=== PATIENT | female | born 1955 ===

== ENCOUNTER → 2019-01-14 | Outpatient (CLI) | payer BC ==
--- NOTE | 2019-01-14 14:56 | CT ---
EXAMINATION TYPE: CT iac wo con DATE OF EXAM: 01/14/2019 COMPARISON: None HISTORY: Per patient right sided ear pain x6 weeks. CT DLP: 142.7mGycm Automated exposure control for dose reduction was used. FINDINGS: The external auditory canals are patent bilaterally. Mastoid air cells show no evidence of abnormal opacification bilaterally. The middle ear ossicles are symmetric and unremarkable. There is no evidence of suspicious surroundi ng soft tissue density to suggest cholesteatoma. The scutum is preserved bilaterally. The cochlea and the semicircular canals are symmetric and unremarkable. Vestibular aqueduct and inte rnal carotid canal appear unremarkable. Temporomandibular joints are maintained bilaterally. Changes of chronic sinusitis are noted. Mastoid air cells demonstrate a normal appearance. Intracrani al atherosclerotic changes are incidentally noted. Visualized parotid glands are symmetric. Oropharyn x and nasopharynx symmetric. Visualized globes intact. IMPRESSION: No significant abnormality seen to account for patient's symptoms.
== END | disposition home or self-care (01) ==
LOC: RADCTMAIN 14:26
PROVIDERS: ATTEND Otolaryngology
DX: H91.90 Unspecified hearing loss, unspecified ear (principal)
CPT/HCPCS: 70480

== ENCOUNTER → 2023-07-12 | Outpatient (CLI) | payer MEDICARE, OTHER ==
[2023-07-12 15:56] LABS: African American GFR (CKD) >90 (>60 ml/min/1.73 sqM); Blood Urea Nitrogen 18 mg/dL (7-17); Non-African American GFR(CKD) >90 (>60 ml/min/1.73 sqM)
--- NOTE | 2023-07-12 19:04 | CT ---
EXAMINATION TYPE: CT iac w con CT DLP: 142.7 mGycm, Automated exposure control for dose reduction was used. DATE OF EXAM: 07/12/2023 4:33 PM INDICATION: Patient age:Female; 67 years old; Reason for study: H93.12 TINNITUS, LEFT EAR; H. COMPARISON: 02/10/2019. TECHNIQUE: Multiple thin axial images were obtained through the temporal bones and internal auditory canals. Additional coronal reformatted images were obtained. No IV contrast was utilized. STENVER a nd POSCHL views were created on a separate work station. CT Contrast: Contrast used:100 cc mL of Isovue 300 with IV Contrast, none. FINDINGS: Right Temporal Bone: No abnormal postcontrast enhancement. External Ear: The external auditory canal is unremarkable, The tympanic membrane is present and unrem arkable. Middle Ear: The ossicles demonstrate a normal appearance. Prussak's space is clear and the scutum i s intact. There is no evidence of osseous erosion and the tegmen tympani is intact. Inner Ear: Cochlea, vestibule and semi circular canals are unremarkable. No evidence of carotid gerry l dehiscence. Two and a half turns of the cochlea are identified. The vestibular aqueduct is not enl arged. Mastoid Air Cells: The mastoid air cells are clear. The tegmen mastoideum is intact. The aditus ad an trum is clear. Internal Auditory Canal: The internal auditory canal is unremarkable. Left Temporal Bone: No abnormal postcontrast enhancement. External Ear: The external auditory canal is unremarkable, The tympanic membrane is present and unrem arkable. Middle Ear: The ossicles demonstrate a normal appearance. Prussak's space is clear and the scutum i s intact. There is no evidence of osseous erosion and the tegmen tympani is intact. Inner Ear: Cochlea, vestibule and semi circular canals are unremarkable. No evidence of carotid gerry l dehiscence. Two and a half turns of the cochlea are identified. The vestibular aqueduct is not enl arged. Mastoid Air Cells: The mastoid air cells are clear. The tegmen mastoideum is intact. The aditus ad an trum is clear. Internal Auditory Canal: The internal auditory canal is unremarkable. Visualized intracranial vasculature is without evidence for high-grade stenosis or aneurysm IMPRESSION: Normal internal auditory canal study. No finding to correlate with patient's left-sided tinnitus. No abnormal postcontrast enhancement.
== END | disposition home or self-care (01) ==
LOC: RADCTMAIN 15:04
PROVIDERS: ATTEND Otolaryngology
DX: H93.12 Tinnitus, left ear (principal); Z13.9 Encounter for screening, unspecified
CPT/HCPCS: 82565; 84520; 70481; 36415; Q9967